=== PATIENT | female | born 1995 | race American Indian/Alaskan Native ===

== ENCOUNTER 2017-11-21 13:32 | Emergency (ER) | payer OTHER ==
[2017-11-21 13:38] VITALS: BMI 24.2
[2017-11-21 13:42] VITALS: O2SAT 100
[2017-11-21 14:47] LABS: BASO # 0.1 K/uL (0.0-0.2); BASO % 0.9 % (0.0-2.0); EOS # 0.1 K/uL (0.0-0.7); EOS % 1.2 % (0.0-4.0); HEMOGLOBIN 13.2 g/dL (11.0-16.0); LYMPH % 49.7 % (20.0-40.0); MEAN CELL VOLUME 91.7 fL (81.0-99.0); MEAN CORPUSCULAR HEMOGLOBIN 31.2 pg (27.0-31.0); MEAN PLATELET VOLUME 9.3 fL (7.2-11.7); MONO # 0.4 K/uL (0.0-0.8); MONO % 6.4 % (0.0-10.0); NEUT # 2.5 K/uL (1.8-7.0); NEUT % 41.8 % (50.0-75.0); NRBC % 0.1 % (0.0-2.0); RBC 4.25 Mil/uL (3.80-5.20); RED CELL DISTRIBUTION WIDTH 13.8 % (11.5-14.5)
[2017-11-21 14:49] LABS: HCG,QUALITATIVE URINE NEGATIVE (NEGATIVE)
[2017-11-21 14:55] LABS: SQUAMOUS EPITHIAL 3 /hpf (0-5); URINE BACTERIA RARE (<OCC); URINE BILIRUBIN NEGATIVE (NEGATIVE); URINE BLOOD NEGATIVE (NEGATIVE); URINE CLARITY Clear (Clear); URINE COLOR Yellow (YELLOW); URINE GLUCOSE (UA) NORMAL (Normal); URINE LEUKOCYTE ESTERASE NEG Leu/uL (Negative); URINE NITRATE NEGATIVE (NEGATIVE); URINE PROTEIN NEGATIVE (NEGATIVE); URINE UROBILINOGEN NORMAL mg/dL (0.2-1.0)
[2017-11-21 14:58] LABS: PARTIAL THROMBOPLASTIN TIME 29 SECONDS (21-34); PROTHROMBIN TIME 10.8 SECONDS (9.7-12.2)
[2017-11-21 15:05] LABS: D DIMER < 200 ng/mlDDU (0-243)
--- NOTE | 2017-11-21 15:20 | C.PDOC ---
History Of Present Illness Patient is a 22 y/o female w/o significant PMHx presents to the ED with her mother for evaluation of intermittent episodes of palpitations developed earlier today. Patient describes episodes as " fast hear rate", intermittent, noted more at rest and associates with SOB. Pt admits, had similar sx in past, no difference at presentation this time and contributory to anxiety from school. Patient also admits to drinking sometime energy drinks. Otherwise, pt and mother denies previous cardiac disease, recent illness, headache, dizziness , neck pain, CP, cough, wheezing, diaphoresis, abd. pain, N/V/D, back pain, UTI sx, denies drug use, denies control pill use, smoking, no risk factors for DVT or PE. Ambulate to Ed for evaluation, not in any apparent distress. Time Seen by Provider: 11/21/17 14:17 Chief Complaint (Nursing): Palpitations History Per: Patient History/Exam Limitations: no limitations Onset/Duration Of Symptoms: Hrs (ealier today) Current Symptoms Are (Timing): Still Present Recent travel outside of the [facility]: No Past Medical History Reviewed: Historical Data, Nursing Documentation, Vital Signs Vital Signs: Last Vital Signs Temp 98.6 F 11/21/17 15:34 Pulse 89 11/21/17 15:34 Resp 16 11/21/17 15:34 BP 121/86 11/21/17 15:34 Pulse Ox 100 11/21/17 15:34 - Medical History PMH: No Chronic Diseases Surgical History: No Surg Hx Family History: States: No Known Family Hx - Social History Hx Alcohol Use: No Hx Substance Use: No - Immunization History Hx Tetanus Toxoid Vaccination: No Hx Influenza Vaccination: No Hx Pneumococcal Vaccination: No Review Of Systems Except As Marked, All Systems Reviewed And Found Negative. Constitutional: Negative for: Fever, Chills Eyes: Negative for: Vision Change ENT: Negative for: Throat Pain Cardiovascular: Positive for: Palpitations. Negative for: Chest Pain, Edema, Light Headedness Respiratory: Positive for: Shortness of Breath. Negative for: Cough, Wheezing Gastrointestinal: Negative for: Nausea, Vomiting, Abdominal Pain, Diarrhea Genitourinary: Negative for: Dysuria Musculoskeletal: Negative for: Neck Pain, Back Pain Skin: Negative for: Rash Neurological: Negative for: Weakness, Numbness, Altered Mental Status, Headache , Dizziness Psych: Positive for: Anxiety Physical Exam - Physical Exam Appears: Well, Non-toxic, No Acute Distress Skin: Normal Color, Warm, Dry, No Rash Head: Normacephalic Eye(s): bilateral: PERRL Nose: No Flaring, No Discharge Oral Mucosa: Moist, No Drooling, No Trismus Tongue: Normal Appearing Throat: No Erythema Neck: Trachea Midline, Supple Cardiovascular: Rhythm Regular (tachycardic), No Murmur, No JVD, Other ((-) carotid bruits B/L) Respiratory: No Decreased Breath Sounds, No Accessory Muscle Use, No Rales, No Rhonchi, No Stridor, No Wheezing Gastrointestinal/Abdominal: Soft, No Tenderness, No Distention, No Guarding Back: No CVA Tenderness Extremity: Normal ROM, No Pedal Edema Neurological/Psych: Oriented x3, Normal Speech, Normal Cognition ED Course And Treatment - Laboratory Results Result Diagrams: 11/21/17 14:31 11/21/17 14:31 Lab Interpretation: Normal ECG: Interpreted By Me, Viewed By Me ECG Rhythm: Sinus Tachycardia Interpretation Of ECG: SINUS TACHY@132/MIN, NAD, NO ACUTE ST-T CHANGES Rate From EC (bpm) O2 Sat by Pulse Oximetry: 100 Pulse Ox Interpretation: Normal - Radiology CXR: Interpreted by Me, Viewed By Me CXR Interpretation: Yes: No Acute Disease Progress Note: EKG, CXR, and blood work ordered. On re-eval, pt is afebrile, hemodynamicaly stable. Asymptomatic. non-toxic. Tolerate Po well in ED. Neck : Supple, (-) JVD, (-) carotid bruits B/L. ENT: no acute findings. Lungs: CTA B/L, BS equal B/L. CVS: (+)S1S2, reg, (-) murmur. Abd: benign. neurologicaly intact. Blood work review and appears without acute findings. Troponin, D- DImer- normal. CXR, EKG- no acute findings. case review with , no further eval recommend, discharge with outpt f/u recommend. Pt has clinical findings c/w palpitation. Pt and parent advised on course of ds. ref. to f/u with PMD, card in 2-3 days for re-eavl. return to ED if any worsening or new changes. Disposition Counseled Patient/Family Regarding: Studies Performed, Diagnosis, Need For Followup - Disposition Referrals: Della Lindsey MD [Staff Provider] - Disposition: HOME/ ROUTINE Disposition Time: 15:29 Condition: STABLE Additional Instructions: FOLLOW UP WITH PMD, CARDIOLOGY IN 2-3 DAYS FOR RE-EVALUATION. AVOID ENERGY DRINKS DUE TO SIDE EFFECT- PALPITATION RETURN TO ED IF ANY WORSENING OR NEW CHANGES. Instructions: Palpitations (ED) Forms: [employer] [facility] [employer] [facility] ([place]) - Clinical Impression Clinical Impression: Palpitations - Scribe Statement The provider has reviewed the documentation as recorded by the Scribe Brinda Granado All medical record entries made by the Scribe were at my direction and personally dictated by me. I have reviewed the chart and agree that the record accurately reflects my personal performance of the history, physical exam, medical decision making, and the department course for this patient. I have also personally directed, reviewed, and agree with the discharge instructions and disposition.
[2017-11-21 15:21] LABS: BENZODIAZEPINES, UR NEGATIVE (NEGATIVE); OPIATES, UR NEGATIVE (NEGATIVE); PHENCYCLIDINE, UR NEGATIVE (NEGATIVE)
[2017-11-21 15:22] LABS: BLOOD UREA NITROGEN 18 mg/dL (7-17); CALCIUM 9.1 mg/dl (8.6-10.4); GFR AFRICAN-AMERICAN > 60; GFR NON-AFRICAN AMERICAN > 60
[2017-11-21 15:23] LABS: BARBITURATES, UR NEGATIVE (NEGATIVE)
[2017-11-21 15:35] VITALS: BP 121/86; PULSE 89; RESP 16; TEMP 98.6
--- NOTE | 2017-11-21 18:08 | RAD ---
HISTORY: chest pain COMPARISON: No prior. TECHNIQUE: Chest PA and lateral FINDINGS: LUNGS: No active pulmonary disease. PLEURA: No significant pleural effusion identified. No pneumothorax apparent. CARDIOVASCULAR: Normal. OSSEOUS STRUCTURES: No significant abnormalities. VISUALIZED UPPER ABDOMEN: Normal. OTHER FINDINGS: None. IMPRESSION: No active disease.
--- NOTE | 2017-11-23 00:04 | CARD ---
APPROVED REPORT EKG Measurement Heart [id number] <Conclusion> Sinus tachycardia Otherwise normal ECG
== END 2017-11-21 16:27 | disposition home or self-care (01) ==
LOC: C.ER 13:32
DX: R00.2 Palpitations (principal)